=== PATIENT | male | born 1985 | race Caucasian/White ===

== ENCOUNTER 2022-09-12 12:52 | Emergency (ER) | payer OTHER ==
[~2022-09-12] VITALS: Ht 175.3 cm; Wt 72.6 kg
[2022-09-12 12:53] VITALS: BP 117/78
--- NOTE | 2022-09-12 12:55 | NUR ---
here for legs pain and numbness at [facility].
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
[2022-09-12] MEDS ORDERED: MORPHINE SULFATE 4 MG/ML SYR IM ONE (13:00)
--- NOTE | 2022-09-12 13:51 | NUR ---
pt not arrested by pd. refused pain med, morphine
[2022-09-12] MEDS ORDERED: NAPR-54 PO (13:55)
[2022-09-12] MEDS ORDERED: CEPH-588 PO (13:55)
--- NOTE | 2022-09-12 14:20 | NUR ---
pt sleeping, no acute distress, o2 sat 98% ra, sr up times 2
[2022-09-12 15:38] VITALS: BP 132/76
--- NOTE | 2022-09-12 15:40 | NUR ---
Patient discharged with v/s stable. Written and verbal after care instructions given and explained. Patient verbalized understanding. Ambulatory with steady gait. All questions addressed prior to discharge. Advised to follow up with PMD.
== END 2022-09-12 15:40 | disposition home or self-care (01) ==
LOC: MED 12:52
DX: L03.116 Cellulitis of left lower limb (principal); M25.571 Pain in right ankle and joints of right foot; V49.88XA Car occupant (driver) (passenger) injured in other specified transport accidents, initial encounter; Y93.89 Activity, other specified; Y92.89 Other specified places as the place of occurrence of the external cause; Y99.8 Other external cause status
CPT/HCPCS: 70450; 72125; 73610; 99284; J2270; Q0092